=== PATIENT | female | born 1985 | race Caucasian/White ===

== ENCOUNTER 2025-07-09 16:25 | Emergency (ER) | payer OTHER, SELFPAY ==
[2025-07-09 16:30] VITALS: BP 151/87; PULSE 100; RESP 16; TEMP 36.7; O2SAT 96; BMI 31.3
--- NOTE | 2025-07-09 16:30 | ED_ITS ---
HPI - Dental/Oral General Chief complaint: Dental/Oral Stated complaint: Dental Pain Time Seen by Provider: 07/09/25 16:33 Source: patient Mode of arrival: ambulatory Limitations: no limitations History of Present Illness ED Provider: Evelin Johnston APRN HPI Narrative: 39 yo female healthy here with right upper dental pain x several days. She reports she was eating tortilla chips and had pain at her gum line, now having increasing gum pain/swelling. No fevers, chills, diff breathing or diff swallowing. Has not seen her dentist. Related Data Previous Rx's ?Medication ?Instructions ?Recorded amoxicillin 500 mg capsule 500 mg PO BID #14 caps 06/25 01/16 Allergies Allergy/AdvReac Type Severity Reaction Status Date / Time ondansetron (From Zofran) AdvReac Agitated Verified 07/09/25 16:32 Review of Systems 2 Review of Systems: Yes all other systems are reviewed and are negative Constitutional: Constitutional: Reports no additional constitutional complaints, Denies body ache(s), Denies chills, Denies fever(s), Denies headache(s) and Denies weakness Eyes: Eyes: Reports no additional eye complaints and Denies change in vision ENT: Reports system reviewed and no additional complaints, except as documented, Reports dental pain, Denies dizziness, Denies headache(s), Denies nasal congestion, Denies nasal discharge and Denies neck pain Cardiovascular: Cardiovascular: Reports no additional cardiovascular complaints, Denies chest pain, Denies leg edema and Denies dyspnea Respiratory: Respiratory: Reports no additional respiratory complaints, Denies cough and Denies dyspnea Gastrointestinal: Gastrointestinal: Reports no additional gastrointestinal complaints, Denies abdominal pain, Denies diarrhea, Denies nausea and Denies vomiting Genitourinary: Genitourinary: Reports no additional female genitourinary complaints and Denies urinary incontinence Musculoskeletal: Musculoskeletal: Reports no additional musculoskeletal complaints, Denies back pain, Denies arthralgias, Denies joint swelling, Denies neck pain, Denies numbness and Denies tingling Integumentary/Breasts: Skin/Breast: Reports system reviewed and no additional complaints, except as docu and Denies rash Neurologic: Reports system reviewed and no additional complaints, except as documented, Denies Abnormal speech present, Denies dizziness, Denies headache(s), Denies numbness, Denies tingling and Denies weakness [facility] Past Medical History Attestation statement: The following information was validated with the patient. Source: old records reviewed and nursing notes reviewed Social History Social History Advance Directives: No Advance Directives Information Provided: No Physical Exam 2 Vital Signs: Vital Signs: Last Vital Signs Temp 98.1 F 07/09/25 16:30 Pulse 100 07/09/25 16:30 Resp 16 07/09/25 16:30 BP 151/87 H 07/09/25 16:30 Pulse Ox 96 07/09/25 16:30 O2 Del Method Room Air 07/09/25 16:30 BMI result Body Mass Index 31.3 Const: General: cooperative, healthy appearing, comfortable and no acute distress Orientation/consciousness: patient oriented x3 Limitations: no limitations HEENT: Head: Yes normal to inspection Ears: hearing grossly normal bilaterally General nose exam: Normal external nose present Face and sinus: Yes normal facial exam Mouth: Normal oral and palatal mucosa present Teeth image: 1. swelling, erythema, no FB noted Throat: Yes posterior oropharynx normal, Yes tonsils normal and Yes uvula midline Eyes: General: appearance normal, both eyes and all related structures P upils: Equal, round and reactive pupils present Neck: Neck: Yes normal visual inspection, Yes full ROM, Yes no lymphadenopathy and Yes no meningeal signs Chest: Chest palpation & inspection: normal inspection of the chest Resp: Effort & Inspection: normal respiratory effort Auscultation: clear to auscultation bilaterally Cardio: Rate: regular rate Rhythm: regular rhythm Peripheral pulses: P eripheral pulses 2+ throughout GI: Inspection: Yes normal to inspection Palpation (GI): Soft to palpation and nontender Auscultation: normal bowel sounds Back/Spine/Pelvis: Thoracic/Lumbar Spine: thoracic and lumbar spine normal to inspection Skin: General skin exam: no rashes or lesions noted Neuro: General: patient oriented x3, no meningeal signs, no focal motor deficits and normal sensation to monofilament Cranial nerves: Yes Equal, round and reactive pupils present Cognition (Neuro): normal cognition S peech: No Abnormal speech present Gait exam (Neuro): Normal gait present M otor exam (neuro): 5/5 motor strength present throughout Extrem: General: Yes normal to inspection Course Course Course Narrative: Evelin Johnston OPTIONS ADVISOR 07/09 0980 This is a rapid medical exam. Deferred additional HPI, ROS, PE to primary provider. Medical Decision Making Medical Decision Making [facility] Narrative: 39 yo female healthy here with right upper dental pain x several days. She reports she was eating tortilla chips and had pain at her gum line, now having increasing gum pain/swelling. No fevers, chills, diff breathing or diff swallowing. Has not seen her dentist. Swelling and erythema right upper gum line area No obvious abscess or FB No trismus Tolerating PO in triage Will provide oral antibiotic, recommend supportive measures and follow-up with dental office Differential Diagnosis Differential Diagnoses: The differential diagnosis associated with the presentation includes Admission/Observation Consideration of admission/observation: Escalation of care including admission/observation considered Prescription Management I considered prescription management with: Antibiotic Discharge Plan Discharge Clinical Impression: Dental infection Patient Disposition: Home, Self-Care Instructions: Toothache (ED) Additional Instructions: Salt water gargles Soft foods Follow-up with dentist next week Alternate motrin/tylenol for pain Prescriptions: New amoxicillin 500 mg capsule 500 mg PO BID Qty: 14 0RF Print Language: Pashto
[2025-07-09 16:42] VITALS: BP 151/87; PULSE 100; RESP 16; TEMP 36.7; O2SAT 96
--- OUTSIDE RECORDS SUMMARY | 2025-07-09 16:42 | XMS_ITS | Clinical Summary ---
Author Organization [facility] Address [address] [place] [phone] Phone Care Team Providers Care Bracer Name Role Phone Physician, No Pcp Primary Care Provider Unavaila ble Allergies Active Allergy Reactions Criticality Noted Date Comments Ondansetron Anxiety 05/26/2017 Itching, agitation Social History Tobacco Use Types Packs/Day Years Used Date Smoking Tobacco: Never Assessed Comments Unknown Sex and Gender Information Value Date Recorded Sex Assigned at Female 10/20/2024 1:12 PM EST Legal Sex Female 2:34 PM EST Gender Identity Female 10/20/2024 1:12 PM EST Sexual Orientation Straight 10/20/2024 1: 12 PM EST Obstetrics History Last Filed Vital Signs Vital Sign Reading Time Taken Comments Blood Pressure 142/91 10/20/2024 11:44 AM EST Pulse 109 10/20/2024 11:44 AM EST Temperature 36.8 C (98.2 F) 10/20/2024 11:44 AM EST Respiratory Rate 18 10/20/2024 11:44 AM EST Oxygen Saturation 97% 10/20/2024 11:44 AM EST Inhaled Oxygen Concentration - - Weight 83.2 kg (183 lb 8 oz) 10/20/2024 11:44 AM EST Height 167.6 cm (5' 6 ) 10/20/2024 11:44 AM EST Body Mass Index 29.62 10/20/2024 11:44 AM EST Plan of Treatment Health Maintenance Due Date Last Done Comments Hepatitis B Vaccines (2 of 3 - 3-dose series) 1987 1987 Cervical Cancer Screening: P ap Smear 2008 HPV Vaccines (2 - 3-dose SCD M series) 12/27/2017 11/29/2017 Depression Screening 08/25/2024 Cholesterol Screening (Lipid Panel) 10/20/2024 HIV Screening 10/20/2024 Hepatitis C Screening 10/20/2024 Hypertension/CHF/CAD Annual BMP Blood Test 10/20/2024 Social Influencers of Health Screening 10/20/2024 COVID-19 Vaccine (1 - 2024-2 6 season) 2025 Influenza Vaccine (#1) 2025 DTaP,Tdap,and Td Vaccines (3 - Td or Tdap) 10/31/2027 10/30/2017, 06/29/2012 RSV Immunization Adult Patients (1 - 1-dose 75+ series) 2062 MMR Vaccines Completed 1988 HIB Vaccines Aged Out No longer eligi ble based on patient's age to complete this topic Hepatitis A Vaccines Aged Out No long er eligible based on patient's age to complete this topic IPV Vaccines Aged Out No longer eligi ble based on patient's age to complete this topic Meningococcal ACWY Vaccine Aged Out N o longer eligible based on patient's age to complete this topic Meningococcal B Vaccine Aged Out No l onger eligible based on patient's age to complete this topic Pneumococcal Vaccine: Pediatrics (0 to 5 Years) and At-Risk Patients (6 to 49 Years) Aged Out No longer eligible b ased on patient's age to complete this topic RSV Immunization Patients Under 20 months Aged Out No longer eligible b ased on patient's age to complete this topic Varicella Vaccines Aged Out No longer eligible based on patient's age to complete this topic Insurance [facility] Care Teams Bracer Relationship Specialty Start Date End Date Physician, No Pcp PCP - General 10/20/24
== END 2025-07-09 16:42 | disposition home or self-care (01) ==
PROVIDERS: Emergency Provider Emergency Medicine
DX: K04.7 Periapical abscess without sinus (principal)
CPT/HCPCS: 99282; 99283